=== PATIENT | female | born 1955 | race Caucasian/White ===

== ENCOUNTER 2020-08-10 11:14 | Outpatient (REF) | payer MEDICARE, SELFPAY ==
--- NOTE | ~2020-08-10 | CT_ITS ---
EXAMINATION: CT SINUS WITHOUT CONTRAST CLINICAL INFORMATION: Deviated nasal septum. COMPARISON: None TECHNIQUE: Axial images through the sinuses without contrast. Sagittal and coronal reconstructions on the technologist workstation were performed. This CT examination was performed using dose optimization techniques as appropriate, variously including the following: *Automated exposure control *Adjustment of mA and/or kV according to patient size (this includes techniques or standardized protocols for targeted exams where dose is matched to indication/reason for exam; i.e. extremities or head) *Use of iterative reconstruction technique DLP: 85 mGy-cm FINDINGS: The nasal cavity is clear. The nasal septum is S-shaped on axial images. The anterior nasal septum is deviated to the right. There is a spur projecting to the left off the posterior nasal septum. The paranasal sinuses are well aerated and clear. The ostiomeatal complexes are patent bilaterally. The mastoid air cells and middle ears are clear. The temporomandibular joints are normal. The orbits are normal. Visualized intracranial structures are normal. The visualized nasal and oropharynx is normal. CT/CT sinus wo con IMPRESSION: Deviated anterior nasal septum to the right and spur projecting to the left off the posterior nasal septum.
== END 2020-08-10 11:15 | disposition home or self-care (01) ==
LOC: HO.CT 11:14
PROVIDERS: PCP Internal Medicine; Visit Provider Otolaryngology
DX: J34.2 Deviated nasal septum (principal)
CPT/HCPCS: 70486

== ENCOUNTER 2020-08-27 10:33 | Outpatient (REF) | payer MEDICARE, SELFPAY ==
[2020-08-27 14:20] LABS: Blood Urea Nitrogen 19 mg/dL (9-16); Estimated Glomerular Filt Rate > 60
== END 2020-08-27 10:34 | disposition home or self-care (01) ==
LOC: HO.10HDL 10:33
PROVIDERS: Visit Provider Otolaryngology
DX: Z01.812 Encounter for preprocedural laboratory examination (principal); R42 Dizziness and giddiness
CPT/HCPCS: 36415; 82565; 84520

== ENCOUNTER 2020-08-31 15:06 | Outpatient (REF) | payer MEDICARE, SELFPAY ==
--- NOTE | ~2020-08-31 | MR_ITS ---
EXAMINATION: MR BRAIN WITHOUT AND WITH CONTRAST CLINICAL INFORMATION: 64-year-old with vertigo of central origin, tinnitus right ear. COMPARISON: None. TECHNIQUE: Multiplanar, multisequence MRI of the brain and IACs was obtained before and after the intravenous administration of 10 mL Gadavist. FINDINGS: IACs: Bilaterally symmetric, no mass lesions or abnormal enhancement. CN VII-VIII complexes normal. AICA Loops:?Type I on left. Membranous Labyrinths: Normal; no abnormal enhancement. CP Angle Cisterns: No mass lesions or abnormal enhancement. Brain Volume: Normal for age. Brain and Meninges: Scattered patchy zones of FLAIR/T2 signal hyperintensity are noted in the white matter of both cerebral hemispheres without restricted diffusion or abnormal enhancement, which are nonspecific findings but likely reflect chronic ischemic microangiopathy. Otherwise the brain is normal in morphology and signal intensity. DWI imaging demonstrates no restricted diffusion. Specifically, there is no evidence for recent or acute infarct. There is no evidence for hemorrhage, hemosiderin staining or abnormal mineral deposition. No intracranial mass lesion, abnormal enhancement, space-occupying process or mass effect is identified. Vessels: Signal voids are seen in the visualized major intracranial vessels within the limitations of the study. Ventricles and Subarachnoid Spaces: The ventricular system and subarachnoid spaces are within normal limits without hydrocephalus. Orbital Structures: The visualized orbital structures are grossly unremarkable. Bony Structures: Craniocervical junction is intact. Osseous marrow signal intensity appears grossly within normal limits. MR/MR head/brain wo/w con IMPRESSION: 1. Normal appearance to the auditory apparatus with a normal appearance to the IACs, inner ear structures and CP angle cisterns without mass lesion or abnormal enhancement. 2. Probable chronic ischemic microangiopathy in the cerebral white matter bilaterally.
== END 2020-08-31 15:07 | disposition home or self-care (01) ==
LOC: HO.MRI 15:06
PROVIDERS: Visit Provider Otolaryngology
DX: H81.4 Vertigo of central origin (principal); H93.11 Tinnitus, right ear; D33.3 Benign neoplasm of cranial nerves
CPT/HCPCS: 70553; A9585

== ENCOUNTER 2021-10-04 12:39 | Outpatient (RCR) | payer MEDICARE, SELFPAY ==
--- NOTE | ~2021-10-04 | XR_ITS ---
EXAMINATION: XR FOOT, RIGHT CLINICAL INFORMATION: Nonhealing wound. Rule out osteomyelitis. COMPARISON: None TECHNIQUE: AP, lateral, and oblique views of the right foot. FINDINGS: Bone alignment is normal. No fracture or dislocation is seen. There are mild degenerative changes at the first MTP joint with small osteophytes. No x-ray evidence of osteomyelitis is seen. There is soft tissue swelling adjacent to the medial first MTP joint. No foreign body. There are calcaneal spurs. XR/XR foot RT min 3V IMPRESSION: Mild degenerative changes at the first MTP joint. No fracture or x-ray evidence of osteomyelitis. Calcaneal spurs.
[2021-10-04 14:05] LABS: MANUAL DIFF FLAG NO
[2021-10-04 14:29] LABS: Basophils Percent Auto 0.4 % (0-2); Eosinophils Absolute Auto 0.1 X10*3/uL (0.0-0.4); Eosinophils Percent Auto 1.1 % (0-4); Hematocrit 40.1 % (37.0-47.0); Hemoglobin 13.1 g/dl (12.0-16.0); Imm Gran Abs Auto 0.04 X10*3/uL (0.00-0.03); Imm Gran Pct Auto 0.4 % (0.0-0.4); Lymphocytes Absolute Auto 2.6 X10*3/uL (1.2-4.9); Lymphocytes Percent Auto 24.3 % (20-40); Mean Corpuscular HGB Conc 32.7 g/dl (31.0-35.0); Mean Corpuscular Hemoglobin 30.1 pg (27.0-33.0); Mean Corpuscular Volume 92.2 fL (80.0-98.0); Mean Platelet Volume 10.3 fL (9.4-12.3); Monocytes Absolute Auto 0.8 X10*3/uL (0.1-1.2); Monocytes Percent Auto 7.4 % (2-11); Neutrophils Percent Auto 66.4 % (45-73); Platelet Count 273 X10*3/uL (160-400); Red Blood Count 4.35 X10*6/uL (4.20-5.50); Red Cell Distribution Width 12.6 % (11.0-16.0); White Blood Count 10.6 X10*3/uL (4.8-10.8)
[2021-10-04 15:13] LABS: Erythrocyte Sedimentation Rate 20 MM/HR (0-20)
[2021-10-04 15:33] LABS: Estimated Average Glucose 258 mg/dL; Hemoglobin A1c % 10.6 %
[2021-10-04 16:24] LABS: Anion Gap 10 (12-20); Blood Urea Nitrogen 20 mg/dL (9-16); C Reactive Protein 0.42 mg/dL (< or = 0.50); Calcium 9.5 mg/dL (8.4-10.2); Carbon Dioxide 32 mmol/L (22-29); Chloride 100 mmol/L (96-108); Estimated Glomerular Filt Rate 49; Glucose Fasting 218 mg/dL (60-99); Potassium 4.9 mmol/L (3.3-5.1); Sodium 137 mmol/L (135-145)
== END 2021-10-20 14:37 | disposition home or self-care (01) ==
LOC: HO.WCC 12:39
PROVIDERS: Physician Assistant; Visit Provider Surgery
DX: E11.622 Type 2 diabetes mellitus with other skin ulcer (principal); L97.511 Non-pressure chronic ulcer of other part of right foot limited to breakdown of skin; L84 Corns and callosities; E11.40 Type 2 diabetes mellitus with diabetic neuropathy, unspecified; I10 Essential (primary) hypertension; Z79.4 Long term (current) use of insulin
CPT/HCPCS: 36415; 73630; 80048; 83036; 84134; 85025; 85652; 86140; 99212; 99213

== ENCOUNTER → 2022-03-20 10:27 | Outpatient (BNVA) | payer MEDICARE, SELFPAY | PROVIDERS: PCP Internal Medicine; Visit Provider Dietitian, Registered | DX: E11.9 Type 2 diabetes mellitus without complications (principal); Z71.3 Dietary counseling and surveillance | CPT/HCPCS: 97802 ==

== ENCOUNTER 2022-08-22 14:00 | Outpatient (RCR) | payer MEDICARE, SELFPAY | END 2022-11-10 16:00 | disposition home or self-care (01) | LOC: HO.WCC 14:00 | PROVIDERS: PCP Pediatrics; Visit Provider Physician Assistant | DX: E11.621 Type 2 diabetes mellitus with foot ulcer (principal); L97.512 Non-pressure chronic ulcer of other part of right foot with fat layer exposed; E11.40 Type 2 diabetes mellitus with diabetic neuropathy, unspecified; L84 Corns and callosities; I10 Essential (primary) hypertension | CPT/HCPCS: 11042; 97597; 99212 ==

== ENCOUNTER 2023-07-16 | Outpatient (RCR) | payer MEDICARE, SELFPAY | END 2023-12-07 10:44 | disposition home or self-care (01) | LOC: HO.WCC | PROVIDERS: PCP Pediatrics; Referring Provider Podiatrist Foot & Ankle Surgery; Visit Provider Surgery | DX: E11.621 Type 2 diabetes mellitus with foot ulcer (principal); L97.522 Non-pressure chronic ulcer of other part of left foot with fat layer exposed; E11.42 Type 2 diabetes mellitus with diabetic polyneuropathy; I10 Essential (primary) hypertension; Z87.39 Personal history of other diseases of the musculoskeletal system and connective tissue | CPT/HCPCS: 11042; 97597; 99212 ==